=== PATIENT | male | born 1975 | race Caucasian/White ===

== ENCOUNTER 2021-11-08 06:10 | Day surgery (SDC) | payer BC ==
[2021-11-04 10:03] LABS: Absolute Lymphocytes (CBC) 1.7 K/uL (0.7-4.9); Hematocrit 45.1 % (39.6-49.0); Lymphocytes % 37.9 % (15.3-44.8); MPV 7.6 fL (7.6-11.3); RBC Red Blood Cell Count 4.92 M/uL (4.33-5.43)
[2021-11-04 10:11] LABS: Protime INR 0.98
[2021-11-04 10:16] LABS: Potassium 4.2 mmol/L (3.5-5.1)
--- NOTE | 2021-11-04 10:17 | RAD REPORT ---
EXAM DESCRIPTION: Jerome Leone (2 Views)11/04/2021 10:06 am CLINICAL HISTORY: Preop for knee surgery COMPARISON: None FINDINGS: The lungs appear clear of acute infiltrate. The heart is normal size IMPRESSION: No acute abnormalities displayed
[2021-11-08] MEDS ORDERED: NA CHLORIDE 0.9% 0 ML ONE (06:29)
[2021-11-08] MEDS ORDERED: Ringers Lactate 1,000 ML IV ONE (06:29)
[2021-11-08] MEDS ORDERED: CEFAZOLIN SODIUM 1 GM/VIAL ONE (06:29)
[2021-11-08] MEDS ORDERED: BUPIVACAINE 0.5% PF 10 ML VIAL ONE (07:29)
[2021-11-08] MEDS ORDERED: EPINEPHRINE/PF 1 MG/ML AMP ONE (07:29)
[2021-11-08] MEDS ORDERED: propofoL 200 MG/20 ML VIAL IV ONE (07:36)
[2021-11-08] MEDS ORDERED: MIDAZOLAM HCL 2 MG/2 ML INJ ONE (07:36)
[2021-11-08] MEDS ORDERED: LIDOCAINE 2% MPF 5 ML VIAL ONE (07:36)
[2021-11-08] MEDS ORDERED: FENTANYL CITR 100 MCG/2 ML ONE (07:36)
[2021-11-08] MEDS ORDERED: BUPIVACAINE 0.25% PF 10 ML VIAL ONE (07:40)
[2021-11-08] MEDS ORDERED: ONDANSETRON 4 MG/2 ML VIAL ONE (08:34)
[2021-11-08] MEDS ORDERED: KETOROLAC 30 MG/ML INJ ONE (08:34)
[2021-11-08] MEDS ORDERED: dexAMETHasone 10 MG/ML VIAL ONE (08:34)
--- NOTE | 2021-11-08 09:29 | P.BOP ---
Preoperative diagnosis: left knee medial meniscus tear, left medial femoral condyle chondromalacia Postoperative diagnosis: same Primary procedure: left knee arthroscopic partial medial meniscectomy Secondary procedure: left knee arthroscopic removal of loose bodies Dispensary Technician: NONE,NONE Estimated blood loss: 3 cc Specimen: none Findings: see dictation Anesthesia: General Complications: None Implants: none Fluids & blood products: per anesthesia record; TT: 24 mins @ 250 mmHg Transferred to: Recovery Room Condition: Good
[2021-11-08 10:03] VITALS: BP 114/68; O2SAT 97
[2021-11-08] MEDS ORDERED: HYDROCODONE/APAP 5/325 MG TAB ONE (10:19)
[2021-11-08 10:21] VITALS: TEMP 97
--- NOTE | 2021-11-09 04:20 | OP ---
Date of Procedure: 11/08/2021 Surgeon: Wood Cabrera MD Preoperative Diagnoses: 1.Left knee medial meniscus tear. 2.Left knee medial femoral condyle chondromalacia. Postoperative Diagnoses: 1.Left knee medial meniscus tear. 2.Left knee medial femoral condyle chondromalacia. 3.Left knee loose bodies. Procedures Performed: 1.Left knee arthroscopic partial medial meniscectomy. 2.Left knee arthroscopic loose body removal with chondroplasty of the medial femoral condyle. Anesthesia: General, LMA. Fluids: Per Anesthesia's record. Ebl: 5 cc. Complications: None. Implants: None. Indications For Procedure: Gregorio is a 46-year-old male who presented to my clinic with signs, sympto ms, and MRI findings that were consistent with a medial meniscus tear as well as a chondromalacia of the medial femoral condyle noted on MRI. The patient failed conservative treatment measures and has significant pain that interferes with his activities of daily living. I discussed with the patient rené devon risks and benefits associated with operative and nonoperative treatment as well as possible continued pain given his underlying osteoarthritis. He expressed understanding and elected to procee d with operative treatment. Description Of Procedure: After informed consent was obtained, the patient was identified in the pre operative holding area. The left lower extremity was marked. The patient was then brought back to [facility] operating room, transferred to the operating table in supine fashion, and placed under general LMA anesthesia. The left lower extremity was then prepped and draped in usual sterile fashion. A time- out was initiated. The correct patient and procedure were confirmed and identified. The patient did receive his preoperative prophylactic antibiotics. The left lower extremity was then exsanguinated using an Esmarch. The tourniquet was inflated to 250 mmHg. Standard anteromedial and anterolateral portals were created. The arthroscope was brought in via the anterolateral portal and a diagnostic a rthroscopy was performed. Arthroscope was first brought into the patellofemoral joint. The patient was noted to have overall no significant chondromalacia noted at the trochlear groove or undersurface of the patella. There were no loose bodies found within the medial or lateral gutters. The arthros cope was then brought into the medial compartment where the patient was noted to have 2 loose bodies approximately 5 x 3 mm in size. These were removed using the arthroscopic shaver without complicatio n. The patient was noted to have grade 3 and grade 4 changes at the medial femoral condyle posterior ly in line with the distal end of the medial femoral condyle. Loose chondral flaps were then debride d using arthroscopic shaver and meniscal biter, performing a chondroplasty of the medial femoral cond yle. Next, attention was taken to the posterior meniscus. There was a complex tear of the posterior horn of the medial meniscus. A partial medial meniscectomy was performed using a meniscal biter and arthroscopic shaver to smooth meniscal borders. The meniscus was found to be stable to probe. Afte r this was completed, the arthroscope was then brought in the medial compartment to the intercondylar notch. The patient was noted to have intact ACL and PCL. The arthroscope was then brought into the lateral compartment. The patient was noted to have another loose body approximately 3 x 4 mm in siz e. This was removed using arthroscopic shaver. The lateral femoral condyle was found to have pristi ne cartilage as well as the lateral tibial plateau. There were no significant lateral meniscus tears . Arthroscopic instruments were then removed without complication. The arthroscopic shaver was brou ght into suprapatellar pouch and was kept on to remove any remaining loose bodies. The wounds were t hen irrigated thoroughly with normal saline. The skin was approximated using a 4-0 Monocryl. Steril e dressings were applied. A tourniquet was let down. The patient was awakened and transferred to [facility] in stable condition. Postoperative Plan: The patient will be weightbearing as tolerated. He will follow up in 1 week for a wound check. Physical Therapy will be consulted to aid with mobilization and his post meniscectom y protocol. If the patient does have any pain in the future, we may proceed with viscosupplementatio n injection given his underlying osteoarthritis most noted on his medial femoral condyle. CV/MODL Voice ID: [id number] Report ID: [id number]
== END 2021-11-08 10:29 | disposition home or self-care (01) ==
LOC: OR 06:10
PROVIDERS: ATTEND Orthopaedic Surgery Sports Medicine
PROC: 0SBD4ZZ Excision of Left Knee Joint, Percutaneous Endoscopic Approach (ICD-10-PCS; principal; 2021-11-08 07:30)
DX: S83.242A Other tear of medial meniscus, current injury, left knee, initial encounter (principal); M25.562 Pain in left knee; Z20.822 Contact with and (suspected) exposure to COVID-19
CPT/HCPCS: 93005; 85025; 80048; 36415; 85610; 85730; 71046; 29881; U0002; J2704; J2250; J3010; J1100; J7120; J2405; J0690; J0171